=== PATIENT | male | born 1940 | race African-American/Black ===

== ENCOUNTER 2017-05-06 02:12 | Emergency (ER) | payer MEDICARE ==
[~2017-05-06] VITALS: Ht 185.4 cm; Wt 78.9 kg
[~2017-05-06 02:12] MED LIST: FOLI20CA PO; GLYB2.5T2 PO; LINA5TAB PO; OXYB5TAB7 PO; PRED10TA14 PO; SIMV40TA3 PO; TAMS0.4C2 PO
[2017-05-06] MEDS ORDERED: CIPR500T87 PO (02:58)
[2017-05-06] MEDS ORDERED: SODIUM CHLORIDE FLUSH 10ML SYR IVF ONE (03:30)
[2017-05-06] MEDS ORDERED: SODIUM CHLORIDE 0.9% 1,000ML IVBOLUS ONE (03:30)
[2017-05-06 03:34] LABS: BLOOD UREA NITROGEN 26 mg/dL (7-18)
[2017-05-06] MEDS ORDERED: POTASSIUM CHLORIDE 20 MEQ TAB.ER.PRT ONE (04:21)
[2017-05-06] MEDS ORDERED: POTASSIUM CHLORIDE 20 MEQ TAB.ER.PRT PO ONE (04:30)
[2017-05-06 04:43] VITALS: BP 107/66
== END 2017-05-06 05:12 | disposition home or self-care (01) ==
LOC: ED 02:56
DX: R33.9 Retention of urine, unspecified (principal); I95.9 Hypotension, unspecified; E86.0 Dehydration; I10 Essential (primary) hypertension; E11.9 Type 2 diabetes mellitus without complications; Z87.891 Personal history of nicotine dependence
CPT/HCPCS: 36415; 80048; 81001; 82040; 85025; 87086; 96360; 96361; 99285; J7030

== ENCOUNTER 2017-05-14 21:46 | Inpatient (IN) | payer MEDICARE ==
[~2017-05-14] VITALS: Ht 180.3 cm; Wt 77.7 kg
[~2017-05-14 21:46] MED LIST changes: +CIPR500T87 PO
[2017-05-14] MEDS: D5%-0.45% NACL 1,000 ML IV SCH (22:33)
[2017-05-14 22:51] LABS: ASPARTATE AMINO TRANSFERASE 40 U/L (15-37); BLOOD UREA NITROGEN 10 mg/dL (7-18)
[2017-05-14] MEDS ORDERED: SODIUM CHLORIDE 0.9% 1,000 ML IV SCH (23:47)
[2017-05-14] MEDS ORDERED: METF500T4 PO (23:59)
[2017-05-15] MEDS ORDERED: SODIUM CHLORIDE 0.9% 1,000 ML IV SCH
[2017-05-15] MEDS ORDERED: TEMAZEPAM 15 MG CAPSULE PO PRN
[2017-05-15] MEDS ORDERED: ACETAMINOPHEN 325 MG TABLET PO PRN
[2017-05-15] MEDS ORDERED: ENALAPRILAT 1.25 MG/ML, 2ML IVPush PRN
[2017-05-15] MEDS ORDERED: FUROSEMIDE 20 MG TABLET PO SCH
[2017-05-15] MEDS ORDERED: ONDANSETRON ODT 4 MG PO PRN
[2017-05-15] MEDS ORDERED: HYDROcodone/APAP 5/325 TABLET PO PRN
[2017-05-15] MEDS ORDERED: FURO-93 PO (00:03)
[2017-05-15 01:26] LABS: POTASSIUM,URINE RANDOM 6 mmol/L
[2017-05-15 02:06] VITALS: BP 138/73
[2017-05-15 02:31] VITALS: BP 138/73
[2017-05-15] MEDS: D5%-0.45% NACL 1,000 ML IV SCH ×2 (04:13→08:38)
[2017-05-15] MEDS: ENOXAPARIN 40 MG/0.4 ML SQ SCH (05:14)
[2017-05-15 06:48] LABS: BLOOD UREA NITROGEN 9 mg/dL (7-18)
[2017-05-15 06:53] VITALS: BP 96/61
[2017-05-15] MEDS: TAMSULOSIN 0.4 MG CAP.ER.24H PO SCH (07:50)
[2017-05-15] MEDS: CIPROFLOXACIN 500 MG TABLET PO SCH ×2 (07:51→21:24)
[2017-05-15] MEDS: OXYBUTYNIN CHLORIDE 5 MG TABLET PO SCH (07:51)
[2017-05-15] MEDS: FOLIC ACID 20 MG HOMEMEDPO SCH (09:00)
[2017-05-15] MEDS: POTASSIUM CHLORIDE 20 MEQ TAB.ER.PRT PO SCH ×3 (11:17→21:25)
[2017-05-15 12:30] VITALS: BP 106/59
[2017-05-15] MEDS: DOCUSATE 100 MG CAPSULE PO PRN (17:08)
[2017-05-15 20:09] VITALS: BP 128/72
[2017-05-15] MEDS: SIMVASTATIN 40 MG TABLET PO SCH (21:25)
[2017-05-16] MEDS: SODIUM CHLORIDE 0.9% 1,000 ML IV SCH ×2 (01:07→14:56)
[2017-05-16] MEDS: ENOXAPARIN 40 MG/0.4 ML SQ SCH (04:20)
[2017-05-16 04:28] VITALS: BP 126/71
[2017-05-16 06:08] LABS: ASPARTATE AMINO TRANSFERASE 27 U/L (15-37); BLOOD UREA NITROGEN 9 mg/dL (7-18)
[2017-05-16 06:37] VITALS: BP 133/71
[2017-05-16] MEDS: DOCUSATE 100 MG CAPSULE PO PRN ×2 (07:45→20:36)
[2017-05-16] MEDS: CIPROFLOXACIN 500 MG TABLET PO SCH ×2 (07:46→20:36)
[2017-05-16] MEDS: TAMSULOSIN 0.4 MG CAP.ER.24H PO SCH (07:46)
[2017-05-16] MEDS: OXYBUTYNIN CHLORIDE 5 MG TABLET PO SCH (07:46)
[2017-05-16] MEDS: FOLIC ACID 20 MG HOMEMEDPO SCH (07:47)
[2017-05-16] MEDS: POTASSIUM ACID PHOSPHATE 500 MG TABLET.SOL PO SCH ×3 (09:40→20:36)
[2017-05-16 15:04] VITALS: BP 130/70
[2017-05-16] MEDS ORDERED: LORazepam 2 MG/ML, 1ML IVPush PRN (15:30)
[2017-05-16 20:30] VITALS: BP 133/72
[2017-05-16] MEDS: SIMVASTATIN 40 MG TABLET PO SCH (20:36)
[2017-05-17] MEDS: POTASSIUM ACID PHOSPHATE 500 MG TABLET.SOL PO SCH ×4 (00:58→21:13)
[2017-05-17 00:59] VITALS: BP 129/64
[2017-05-17] MEDS: ENOXAPARIN 40 MG/0.4 ML SQ SCH (05:22)
[2017-05-17 05:41] LABS: BLOOD UREA NITROGEN 6 mg/dL (7-18)
[2017-05-17 07:21] VITALS: BP 138/76
[2017-05-17] MEDS: OXYBUTYNIN CHLORIDE 5 MG TABLET PO SCH (07:53)
[2017-05-17] MEDS: TAMSULOSIN 0.4 MG CAP.ER.24H PO SCH (07:53)
[2017-05-17] MEDS: CIPROFLOXACIN 500 MG TABLET PO SCH ×2 (07:54→21:14)
[2017-05-17] MEDS: FOLIC ACID 20 MG HOMEMEDPO SCH (08:16)
[2017-05-17 13:35] VITALS: BP 145/75
[2017-05-17] MEDS ORDERED: POLYETHYLENE GLYCOL 17 GM PACKET PO PRN (16:30)
[2017-05-17 19:20] VITALS: BP 120/67
[2017-05-17] MEDS: DOCUSATE 100 MG CAPSULE PO PRN (21:14)
[2017-05-17] MEDS: SIMVASTATIN 40 MG TABLET PO SCH (21:14)
[2017-05-18 00:51] VITALS: BP 140/81
[2017-05-18] MEDS: POTASSIUM ACID PHOSPHATE 500 MG TABLET.SOL PO SCH ×2 (01:00→08:19)
[2017-05-18 05:47] LABS: BLOOD UREA NITROGEN 10 mg/dL (7-18)
[2017-05-18] MEDS: ENOXAPARIN 40 MG/0.4 ML SQ SCH (05:48)
[2017-05-18 08:04] VITALS: BP 127/66
[2017-05-18] MEDS: CIPROFLOXACIN 500 MG TABLET PO SCH (08:19)
[2017-05-18] MEDS: OXYBUTYNIN CHLORIDE 5 MG TABLET PO SCH (08:19)
[2017-05-18] MEDS: TAMSULOSIN 0.4 MG CAP.ER.24H PO SCH (08:19)
[2017-05-18] MEDS: FOLIC ACID 20 MG HOMEMEDPO SCH (08:20)
[2017-05-18] MEDS ORDERED: MAGNESIUM HYDROXIDE 8%, 30ML UDC PO PRN (12:00)
[2017-05-18] MEDS ORDERED: BISACODYL 5 MG EC TABLET PO PRN (12:00)
[2017-05-18] MEDS ORDERED: BISACODYL 10 MG SUPP PR PRN (12:00)
[2017-05-18 14:52] VITALS: BP 111/65
== END 2017-05-18 16:18 | disposition home or self-care (01) | DRG 640 ==
LOC: ED 23:25 → EDIP 23:43 → 4WST 05-15 00:29
PROVIDERS: ADMIT Family Medicine; ATTEND Internal Medicine
PROC: 0T9B70Z Drainage of Bladder with Drainage Device, Via Natural or Artificial Opening (ICD-10-PCS; principal; 2017-05-14)
DX: E87.1 Hypo-osmolality and hyponatremia (principal); R53.2 Functional quadriplegia; E11.649 Type 2 diabetes mellitus with hypoglycemia without coma; T45.1X5A Adverse effect of antineoplastic and immunosuppressive drugs, initial encounter; N40.0 Benign prostatic hyperplasia without lower urinary tract symptoms; T38.3X5A Adverse effect of insulin and oral hypoglycemic [antidiabetic] drugs, initial encounter; D47.3 Essential (hemorrhagic) thrombocythemia; M35.3 Polymyalgia rheumatica; D89.9 Disorder involving the immune mechanism, unspecified; I10 Essential (primary) hypertension; E86.0 Dehydration; E83.42 Hypomagnesemia; E83.39 Other disorders of phosphorus metabolism; E87.6 Hypokalemia; D64.9 Anemia, unspecified; M25.461 Effusion, right knee; D63.8 Anemia in other chronic diseases classified elsewhere; Y92.89 Other specified places as the place of occurrence of the external cause; Z79.84 Long term (current) use of oral hypoglycemic drugs; Z87.891 Personal history of nicotine dependence; Z79.52 Long term (current) use of systemic steroids; T38.0X5A Adverse effect of glucocorticoids and synthetic analogues, initial encounter; N40.1 Benign prostatic hyperplasia with lower urinary tract symptoms; R33.8 Other retention of urine
CPT/HCPCS: 36415; 71010; 80048; 80053; 81003; 82436; 82962; 83735; 83930; 83935; 84100; 84133; 84295; 84300; 85025; 93005; 96365; J1650; J7030; J7512

== ENCOUNTER → 2017-11-16 | Outpatient (CLI) | payer MEDICARE ==
[~2017-11-16] MED LIST changes: +FURO-93 PO; +METF500T4 PO; +REGADENOSON 0.4 MG/5 ML SYRINGE ONE
== END | disposition home or self-care (01) ==
LOC: CVU 08:56
PROVIDERS: ATTEND Internal Medicine Cardiovascular Disease
DX: I08.0 Rheumatic disorders of both mitral and aortic valves (principal); I10 Essential (primary) hypertension; E11.9 Type 2 diabetes mellitus without complications
CPT/HCPCS: 78452; 93017; 93306; A9502; J2785

== ENCOUNTER → 2019-09-18 | Outpatient (CLI) | payer MEDICARE ==
[~2019-09-18] MED LIST changes: +METF500T17 PO; -METF500T4 PO; +OXYB5TAB10 PO; -OXYB5TAB7 PO; -REGADENOSON 0.4 MG/5 ML SYRINGE ONE
== END | disposition home or self-care (01) ==
LOC: CVU 13:35
PROVIDERS: ATTEND Internal Medicine Cardiovascular Disease
DX: I08.0 Rheumatic disorders of both mitral and aortic valves (principal); I65.23 Occlusion and stenosis of bilateral carotid arteries; I10 Essential (primary) hypertension; Z87.891 Personal history of nicotine dependence; E11.9 Type 2 diabetes mellitus without complications; I42.9 Cardiomyopathy, unspecified
CPT/HCPCS: 0399T; 93306; 93880

== ENCOUNTER → 2020-04-20 | Outpatient (CLI) | payer MEDICARE ==
[~2020-04-20] MED LIST changes: +GADOTERATE 10 MMOL/20 ML SYR ONE; +SIMV40TA20 PO; -SIMV40TA3 PO
== END | disposition home or self-care (01) ==
LOC: RAD 15:00
PROVIDERS: ATTEND Nurse Practitioner Primary Care
DX: G31.89 Other specified degenerative diseases of nervous system (principal); J34.89 Other specified disorders of nose and nasal sinuses
CPT/HCPCS: 70553; A9575